=== PATIENT | male | born 2005 | race Caucasian/White ===

== ENCOUNTER 2024-04-21 22:36 | Emergency (ER) | payer OTHER ==
[2024-04-22] MEDS ORDERED: KETAMINE 100 MG/ML (5ML VIAL) ONE (00:10)
[2024-04-22] MEDS ORDERED: fentaNYL 50 mcg/mL 1 mL Vial ONE (00:11)
[2024-04-22] MEDS ORDERED: Promethazine HCl 25 MG/ML VIAL ONE (00:14)
== END 2024-04-22 02:15 | disposition home or self-care (01) ==
LOC: ERS 22:36
DX: S52.502A Unspecified fracture of the lower end of left radius, initial encounter for closed fracture (principal); S52.612A Displaced fracture of left ulna styloid process, initial encounter for closed fracture; W21.05XA Struck by basketball, initial encounter; Y93.67 Activity, basketball
CPT/HCPCS: 29125; 93005; 96365; 99152; 99153; J2550; J3010